=== PATIENT | female | born 1980 | race Hispanic/Latino ===

== ENCOUNTER 2024-12-27 22:17 | Inpatient (IN) | payer OTHER ==
[2024-12-27] MEDS ORDERED: hydrALAZINE 20 MG/ML VIAL SLOW IVP PRN ×2 (22:27→22:54)
[2024-12-27] MEDS ORDERED: Tranexamic Acid 1,000 MG/10 ML VIAL IVP PRN (22:54)
[2024-12-27] MEDS ORDERED: Ondansetron PF 4 MG/2 ML Vial IVP PRN (22:54)
[2024-12-27] MEDS ORDERED: Methylergonovine 0.2 MG/ML VIAL IM PRN (22:54)
[2024-12-27] MEDS ORDERED: Diphenoxylate HCl/Atropine Tablet PO PRN (22:54)
[2024-12-27] MEDS ORDERED: Carboprost 250 MCG/ML AMP IM PRN (22:54)
[2024-12-27] MEDS ORDERED: Ampicillin 125 MG/5 ML VIAL SLOW IVP SCH (22:57)
[2024-12-27] MEDS ORDERED: Oxytocin 30 units/NS 500 ML 500 ML IV SCH (23:00)
[2024-12-27] MEDS ORDERED: Calcium Gluc 4.6 MEQ/10 ML (100 MG/ML) SLOW IVP PRN (23:03)
[2024-12-27 23:10] VITALS: BMI 27.8
[2024-12-27] MEDS: Magnesium Sulfate 20 gm/500 ml 20 GM/500 ML BAG ONE (23:11)
[2024-12-27] MEDS ORDERED: Magnesium Sulfate 20 gm/500 ml 20 GM/500 ML BAG IVPB SCH (23:15)
[2024-12-27 23:19] LABS: Fetal Membranes Rupture RUPTURE DETECTED (No Rupture)
[2024-12-27] MEDS: Azithromycin 250 MG TAB PO SCH (23:41)
[2024-12-27 23:44] LABS: Glucose, Urine (Dipstick) Normal (Negative); Leukocyte Negative (Negative); Protein, Urine (Dipstick) Negative (Neg-Trace); Specific Gravity, Urine 1.005 (1.005-1.030)
[2024-12-27 23:53] LABS: Bacteria/HPF Rare-Few HPF (None Seen); CAUTI Indications for Culture Pregnancy; RBC/HPF 0-3 HPF (0-3); WBC/HPF 0-3 HPF (0-3)
[2024-12-27 23:54] LABS: Urine Culture Reflex Yes Yes
[2024-12-28 01:55] LABS: Hematocrit 33.3 % (34.9-44.5); Hemoglobin 11.7 g/dL (12.0-15.5); Mean Corpuscular Hemoglobin 32.9 pg (27.0-33.0); Mean Corpuscular Volume 93.5 fL (81.6-98.3); Platelet Count 303 10x3/uL (150-450); Red Blood Cell (RBC) Count 3.56 10x6/uL (3.90-5.03); White Blood Cell (WBC) Count 14.28 10x3/uL (3.5-10.5)
[2024-12-28 02:30] LABS: Hep B Surf Ag - L&D Non-Reactive S/CO (NonReactive)
[2024-12-28 02:31] LABS: Syphilis Antibody Index 0.05 S/CO (<1.00 Non-Reactive)
[2024-12-28] MEDS ORDERED: BIOTIN 1 MG PO SCH (09:00)
[2024-12-28] MEDS ORDERED: Folic Acid 1 MG TAB PO SCH (09:00)
[2024-12-28] MEDS ORDERED: Cholecalciferol 1,000 UNITS (25 MCG) TAB PO SCH (09:00)
[2024-12-28] MEDS ORDERED: Aspirin 81 mg Enteric Coated Tablet PO SCH (09:00)
[2024-12-29 23:14] LABS: Group B Streptococcus by PCR DETECTED (NotDetected)
== END 2024-12-28 02:34 | disposition short-term general hospital (02) | DRG 832 ==
LOC: CSHLD/OP 22:17 → EEVIPCON 22:17 → CSHLD 23:22
PROVIDERS: ADMIT Student in an Organized Health Care Education/Training Program; ATTEND Student in an Organized Health Care Education/Training Program
DX: O42.912 Preterm premature rupture of membranes, unspecified as to length of time between rupture and onset of labor, second trimester (principal); O41.02X0 Oligohydramnios, second trimester, not applicable or unspecified; Z3A.23 23 weeks gestation of pregnancy; O99.282 Endocrine, nutritional and metabolic diseases complicating pregnancy, second trimester; E03.9 Hypothyroidism, unspecified; O99.820 Streptococcus B carrier state complicating pregnancy; Z87.890 Personal history of sex reassignment; Z90.49 Acquired absence of other specified parts of digestive tract
CPT/HCPCS: 36415; 76815; 81001; 84112; 85027; 86780; 86850; 86900; 86901; 87077; 87086; 87340; 87480; 87510; 87653; 87660; 99285; J0290; J0702; J3475